=== PATIENT | female | born 1960 | race Caucasian/White ===

== ENCOUNTER → 2022-03-20 08:12 | Outpatient (CLI) | payer OTHER, SELFPAY ==
--- NOTE | ~2022-03-20 | CT_ITS ---
EXAMINATION: CT brain wo con DATE: 03/20/2022 08:33 INDICATION: Dementia TECHNIQUE: Computed tomography (CT) of the head was performed without intravenous contrast. The mA wa s adjusted according to patient size. Iterative reconstruction technique was employed. Exam dose: 52 4.62 mGy-cm total exam DLP. COMPARISON: None FINDINGS: No intracranial mass lesion or hemorrhage or cerebrovascular accident is detected. No midli ne shift or mass effect effect. Moderate cerebral volume loss. There is intracranial cerebral atherosclerosis. There is nonspecific diminished attenuation of the ce rebral white matter, likely due to chronic small vessel ischemic change. Minimal left basal ganglia c alcification. No subdural or epidural hematoma. Mastoid air cells and included paranasal sinuses are normally developed and aerated. No fracture or bone destruction of the cranial vault. IMPRESSION: Cerebral atherosclerosis and chronic small vessel ischemic changes of cerebral white mat ter No acute intracranial finding Reviewed, dictated and finalized at [facility]. Reviewed, dictated and finalized at [facility]. IMPRESSION: Cerebral atherosclerosis and chronic small vessel ischemic changes of cerebral white matter No acute intracranial finding
== END ==
PROVIDERS: PCP Physician Assistant Medical; Visit Provider Physician Assistant Medical
DX: F03.90 Unspecified dementia, unspecified severity, without behavioral disturbance, psychotic disturbance, mood disturbance, and anxiety (principal); I67.2 Cerebral atherosclerosis
CPT/HCPCS: 70450

== ENCOUNTER 2022-04-06 13:49 | Observation (INO) | payer OTHER, SELFPAY ==
[2022-04-06] VITALS (8 sets, daily range): BP systolic 147–181; BP diastolic 70–99; PULSE 61–97; RESP 15–20; TEMP 36.4–36.6; O2SAT 98–99
--- NOTE | ~2022-04-06 | CT_ITS ---
EXAMINATION: CT brain wo con DATE: 04/06/2022 16:10 INDICATION: altered mental status . TECHNIQUE: Computed tomography (CT) of the head was performed without intravenous contrast. The mA wa s adjusted according to patient size. Iterative reconstruction technique was employed. The dose-lengt h product was 605.33 mGy-cm. COMPARISON: 03/20/2022 FINDINGS: No acute intracranial hemorrhage or extra-axial fluid collection. No hydrocephalus, mass, or herniation. No acute ischemic infarct. Unremarkable dural venous sinus attenuation. No acute osseous abnormality. The aerated spaces are clear. Mild atrophy and chronic white matter change. Atherosclerotic intracranial calcifications. Bilateral lens replacements. Left basal ganglia calcification. IMPRESSION: No acute intracranial process. Reviewed, dictated and finalized at [facility].
--- NOTE | ~2022-04-06 | XR_ITS ---
EXAMINATION: XR chest 1V DATE: 04/06/2022 16:18 INDICATION: Altered mental status TECHNIQUE: frontal and lateral views of the chest were obtained. COMPARISON: None FINDINGS: The lungs are clear with no focal airspace opacities, pulmonary edema, pleural effusion or pneumothor ax. The cardiomediastinal silhouette is normal. Visualized bones and soft tissues are unremarkable. IMPRESSION: 1. No acute cardiopulmonary disease. Reviewed, dictated and finalized at [facility].
--- NOTE | ~2022-04-06 | MR_ITS ---
EXAMINATION: MR brain/brain stem wo/w con DATE: 04/08/2022 07:20 INDICATION: Confusion. TECHNIQUE: Magnetic resonance imaging (MRI) of the brain and brainstem was performed without and with 13 mL MultiHance intravenous contrast. COMPARISON: Head CT 04/06/2022 FINDINGS: There is no intracranial hemorrhage, acute infarction, or abnormal intracranial mass lesion . There are scattered areas of nonspecific increased T2-weighted signal intensity in the cerebral whi te matter. The ventricles are normal in size. There is mild mucosal thickening in the ethmoid sinuses . There are likely changes of ocular lens replacement surgeries. The mastoid air cells are normal. IMPRESSION: 1. Mild nonspecific cerebral white matter disease, which likely represents chronic small vessel ische zakia disease. Reviewed, dictated and finalized at location [facility]. IMPRESSION: 1. Mild nonspecific cerebral white matter disease, which likely represents technical solutions consultant silvio small vessel ischemic disease.
[2022-04-06 15:51] LABS: Basophils Percent Auto 0.5 % (0.2-1.2); Eosinophils Percent Auto 0.2 % (0-4.4); Hematocrit 41.6 % (37.0-47.0); Hemoglobin 13.4 g/dL (12.0-15.0); Lymphocytes Absolute Auto 1.23 K/mm3 (0.9-3.2); Lymphocytes Percent Auto 19.4 % (18.3-44.2); Mean Corpuscular HGB Conc 32.2 g/dl (32-36); Mean Corpuscular Hemoglobin 30.7 pg (26-34); Mean Corpuscular Volume 95.2 fl (80-100); Mean Platelet Volume 8.9 fl (7.4-10.4); Monocytes Absolute Auto 0.5 K/mm3 (0.1-0.6); Monocytes Percent Auto 7.1 % (2.6-8.5); Neutrophils Absolute Auto 4.6 K/mm3 (1.3-6.7); Neutrophils Percent Auto 72.8 % (45.5-73.1); Platelet Count Result 205 k/mm3 (150-375); Red Blood Count 4.37 M/mm3 (4.2-5.4); Red Cell Distribution Width 12.3 % (11.5-14.5); White Blood Count 6.3 K/mm3 (4.5-10.0)
--- NOTE | 2022-04-06 15:56 | ECG_ITS ---
Measurements Intervals [address] Rate: 62 P: 56 HI: 182 QRS: -29 QRSD: 86 T: 48 QT: 409 QTc: 417 Interpretive Statements SINUS RHYTHM LEFTWARD AXIS VOLTAGE CRITERIA FOR LVH Electronically Signed On 04-07-2022 11:37:11 CDT by Efren Phan M.D.
--- NOTE | 2022-04-06 15:57 | ED.AMS ---
HPI - Altered Mental Status General Chief Complaint: Altered Mental Status Stated Complaint: Panic attack Time Seen by Provider: 04/06/22 15:51 History of Present Illness HPI narrative: pt having mild dementia mms 19 and was on xanax prn not taking per family long time so primary started zoloft and had uti abx which then rechecked and resolved but memory getting worse mms again 20 but new things getting wrong vs before set up [facility] next week and then family says added aricept but last week really took turn for worse with dementia and hallucinations esau since even stopping aricept worse since wednesday and no othe rmedical c/o trauma wagoner etc took zoloft today Related Data Allergies Allergy/AdvReac Type Severity Reaction Status Date / Time NA Allergy Unknown Uncoded 06/29/15 15:02 NONE Allergy Unknown Uncoded 02/27/03 14:57 Review of Systems Constitutional: Comments: CONSTITUTIONAL: Denies fever, chills, or sweats. EYES: Denies visual changes, redness, or discharge. ENT: Denies rhinorrhea, congestion, sore throat, or otalgia. CARDIOVASCULAR: Denies chest pain, palpitations, or edema. RESPIRATORY: Denies cough or dyspnea. GASTROINTESTINAL: Denies abdominal pain, nausea, vomiting, or diarrhea. GENITOURINARY: Denies dysuria or hematuria. SKIN: Denies rash or itching. MUSCULOSKELETAL: Denies back pain, joint pain, or myalgia. NEUROLOGIC: Denies headache, numbness, or weakness. PSYCHIATRIC: Denies anxiety or depression. has hallucinations dementia PMFSH Social History Social History Substance use type: does not use Exam Const: Other: APPEARANCE: Well appearing, no pain in distress, well-nourished. Head normocephalic atraumtaic. EYES: PERRLA/EOMI, conjunctivae very clear. NOSE: Normal no drainage EARS:TMS clear Sarah Garcia, with good light reflex. THROAT: Pharynx clear, no exudate. NECK: Supple. No adenopathy, no masses. RESPIRATORY: Airway patent, repsirations nonlabored. Clear to auscultation bilaterally, no rales, rhonchi, wheezing. CARDIOVASCULAR: Regular rate and rhythm without murmurs rubs or gallops. ABDOMINAL: Soft, nontender, nondistended, no hepatosplenomegally MUSCULOSKELETAl: Moves all extremities. Strenght/ROM intact, No edema, No calf tenderness. NEURO: Alert. confused flat affect 1 word answers hallucinations and gets very aggitated easily dementia SKIN:: Warm, dry. Normal Color PSYCHIATRIC: flat then aggressive due to hallucinations Course Reevaluation(s) Reevaluation #1: talked with family given isues and meds thinking serotonin syndrome and family aggress will admit hospitalist aware at 1817 Vital Signs Vital signs: Vital Signs Temperature 36.4 C L 04/06/22 13:57 Pulse Rate 97 04/06/22 13:57 Respiratory Rate 20 04/06/22 13:57 Blood Pressure 147/80 H 04/06/22 13:57 Pulse Oximetry 98 04/06/22 13:57 Oxygen Delivery Room Air 04/06/22 13:57 Temperature 36.4 C L 04/06/22 13:57 Pulse Rate 69 04/06/22 17:38 Respiratory Rate 18 04/06/22 17:38 Blood Pressure 181/70 H 04/06/22 17:38 Pulse Oximetry 99 04/06/22 17:38 Oxygen Delivery Room Air 04/06/22 13:57 MDM - Altered Mental Status Lab Data Result diagrams: 04/06/22 15:45 04/06/22 15:45 Labs: Lab Results 04/06/22 04/06/22 04/06/22 Range/Units 15:45 15:45 15:45 WBC 6.3 (4.5-10.0) K/mm3 RBC 4.37 (4.2-5.4) M/mm3 Hgb 13.4 (12.0-15.0) g/dL Hct 41.6 (37.0-47.0) % MCV 95.2 (80-100) fl MCH 30.7 (26-34) pg MCHC 32.2 (32-36) g/dl RDW 12.3 (11.5-14.5) % Plt Count 205 (150-375) k/mm3 MPV 8.9 (7.4-10.4) fl Immature Gran % (Auto) 0.0 (0-0.5) % Neut % (Auto) 72.8 (45.5-73.1) % Lymph % (Auto) 19.4 (18.3-44.2) % [place]oshone % (Auto) 7.1 (2.6-8.5) % Eos % (Auto) 0.2 (0-4.4) % Baso % (Auto) 0.5 (0.2-1.2) % Lymph # (Auto) 1.23 (0.9-3.2) K/mm3 [place]oshone # (Auto) 0.5 (0.1-0.6) K/mm3 Eos # (Auto) 0.0
[2022-04-06 16:01] LABS: Alanine Aminotransferase 18 U/L (6-35); Alkaline Phosphatase 80 U/L (38-126); Anion Gap 11 mmol/L (8-16); Aspartate Amino Transferase 29 U/L (14-36); Bilirubin,Total 0.4 mg/dL (0.2-1.3); Blood Urea Nitrogen 21 mg/dL (7-17); Calcium 9.9 mg/dL (8.4-10.2); Carbon Dioxide 27 mmol/L (22-30); Chloride 102 mmol/L (98-107); Estimated CRCL calculation 54 ml/min; Estimated Glomerular Filt Rate > 60; Glucose 124 mg/dL (65-110); Potassium 4.1 mmol/L (3.4-5.0); Sodium 140 mmol/L (137-145)
[2022-04-06 16:02] LABS: Prothrombin Time 12.5 Seconds (11.1-14.7)
[2022-04-06 16:03] LABS: Partial Thromboplastin Time 23.9 SECONDS (22.3-36.8)
[2022-04-06 16:09] LABS: Add Urine Microscopic? YES; Appearance Urine Clear (Clear); Bilirubin Urine Negative (Negative); Blood Urine Negative (Negative); Color Urine Yellow (Yellow); Glucose Urine UA Negative (Negative); Ketones Urine Trace mg/dL (Negative); Leukocyte Esterase Ur Negative LEU/UL (Negative); Nitrate Urine Negative (Negative); Protein Urine 1+ mg/dL (Negative); Specific Grav Ur 1.025 (1.001-1.035); Urobilinogen Urine 0.2 mg/dL (<2.0); pH Urine 5.5 (5.0-9.0)
[2022-04-06 16:17] LABS: Bacteria Urine Trace /hpf; Mucus Urine Moderate /lpf; RBC Urine 0-2 /hpf (0-2); Squamous Epithelial Cell Urine Few /hpf (Few)
[2022-04-06 16:26] LABS: Amphetamine Screen Urine Negative (Negative); Barbiturate Screen Urine Negative (Negative); Benzodiazepines Screen Urine Negative (Negative); Cannabinoid Screen Urine Negative (Negative); Cocaine Screen Urine Negative (Negative); Methadone Screen Urine Negative (Negative); Opiate Screen Urine Negative (Negative); Phencyclidine Screen Urine Negative (Negative)
--- NOTE | 2022-04-06 16:27 | PC.NURSE ---
Pt at this time is not responding to verbal stimuli at this time. IV started without moving. Sternal rub with minimal response. Gag reflux postive at this time, MD notified.
--- NOTE | 2022-04-06 16:45 | PC.NURSE ---
Pt extremely anxious, Pt fighting with staff to remove shirt and be placed in gown. Respiratory attempted to draw blood gas and was unsuccessful. Pt screamed and pulled away.
[2022-04-06 16:48] LABS: Glucose Point of Care 129 mg/dl (65-105)
[2022-04-06 17:05] LABS: Ethanol < 10 mg/dL (<10)
[2022-04-06 17:13] LABS: SARS-CoV-2 RNA PCR Negative
[2022-04-06 17:22] LABS: Acetaminophen < 10 ug/mL (10-30)
--- NOTE | 2022-04-06 17:30 | PCRCNOTE ---
Pt/family refused repeated ABG stick, Dr. Herring informed and approved refusal.
[2022-04-06 17:36] LABS: Magnesium 2.1 mg/dL (1.6-2.3)
--- NOTE | 2022-04-06 17:42 | PC.NURSE ---
still unable to do EKG due to pt being anxious and hallucinating.
[2022-04-06] MEDS: diazePAM INJ (*CRX) 10 MG/2 ML SYRINGE 5 MG IM (18:37)
--- NOTE | 2022-04-06 20:26 | PC.NURSE ---
This RN tried to call report 2 times then notified ED Charge nurse
--- NOTE | 2022-04-06 20:44 | PM.IMHP ---
H&P: HPI History of Present Illness Date/Time: 04/06/22 20:44 Chief Complaint: confusion Narrative: this is a 62-year-old female patient with a history of dementia. Her short-term memory has gradually faded and the patient was started on Aricept. The patient has not been sleeping and has become delusional. The patient was taken off of her Aricept per her primary care doctor. Patient also was on Xanax for anxiety and her primary care doctor took her off of the Xanax as well. The family stated that the patient had not been taking he Xanax very frequently. The patient was then started on Zoloft approximately 3 weeks ago. The family called her primary care doctor who thought that maybe the Zoloft was causing her to be delusional and that too was discontinued. The patient was also recent treated for urinary tract infection and it was thought that that had been the cause of her confusion. The patient is aware of who she is but does not know the date. She believes this is November. She could not remember who the president is Currently. The patient was yelling and screaming in the emergency room and wanting to go home. Was demanding to go home. Her and son are at the bedside stating that the patient is getting worse. She was given Valium IV in the emergency room which seemed to help. Urine is negative and COVID is negative. CT of her head showed no acute ischemic infarction. No acute intracranial process. Chest x-ray was read as no acute cardiopulmonary disease. The patient is being admitted for inpatient status on the date of service of 04/06/2022. Review of Systems Review of Systems: All systems reviewed & are unremarkable except as noted in HPI and below Constitutional: Constitutional: Reports as per HPI and Reports no additional constitutional complaints Eyes: Eyes: Reports as per HPI and Reports no additional eye complaints ENT: Reports system reviewed and no additional complaints, except as documented and Reports Normal hearing present Cardiovascular: Cardiovascular: Reports no additional cardiovascular complaints Respiratory: Respiratory: Reports no additional respiratory complaints and Reports no additional respiratory complaints Gastrointestinal: Gastrointestinal: Reports as per HPI and Reports no additional gastrointestinal complaints Musculoskeletal: Musculoskeletal: Reports no additional musculoskeletal complaints Integumentary/Breasts: Skin/Breast: Reports system reviewed and no additional complaints, except as docu and Reports as per HPI Neurologic: Reports system reviewed and no additional complaints, except as documented, Reports as per HPI and Reports Normal hearing present Psychiatric: Psychiatric: Reports no additional psychiatric complaints and Reports as per HPI Endocrine: Endocrine: Reports no additional endocrine complaints Hematologic/Lymphatic: Hematologic/Lymphatic: Reports no additional hematologic/lymphatic complaints Allergic/Immunologic: Allergic/Immunologic: Reports no additional allergic/immunologic complaints [facility] Past Medical History Medical History (Updated 04/06/22 @ 20:48 by Olesya Pearl NP) Glaucoma Hyperlipemia, mixed Surgical History Surgical History (Updated 04/06/22 @ 22:48 by Olesya Pearl NP) H/O tubal ligation H/O: hysterectomy Family History Family History Mother Dementia Father Hyperlipidemia Social History Social History (Updated 04/06/22 @ 22:43 by Olesya Pearl NP) Social History: the patient is and lives with her . 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 She denies any tobacco abuse. she is occasionally has a beer. code status full code Smoking status: Never smoker Alcohol intake: never Substance use: never Substance use type: does not use Spiritual care concerns: No Meds Home Medications and Allergies Home Medications Med
[2022-04-07] VITALS (9 sets, daily range): BP systolic 142–168; BP diastolic 70–93; PULSE 68–130; RESP 17–18; TEMP 36–36.4; O2SAT 97–100
[2022-04-07 06:45] LABS: Basophils Percent Auto 0.4 % (0.2-1.2); Eosinophils Percent Auto 0.3 % (0-4.4); Hemoglobin 13.5 g/dL (12.0-15.0); Immature Granulocyte Absolute 0.02 K/mm3 (0.00-0.031); Immature Granulocyte Percent A 0.3 % (0-0.5); Lymphocytes Absolute Auto 1.42 K/mm3 (0.9-3.2); Lymphocytes Percent Auto 21.2 % (18.3-44.2); Mean Corpuscular HGB Conc 32.1 g/dl (32-36); Mean Corpuscular Hemoglobin 30.7 pg (26-34); Mean Corpuscular Volume 95.5 fl (80-100); Mean Platelet Volume 9.4 fl (7.4-10.4); Monocytes Absolute Auto 0.5 K/mm3 (0.1-0.6); Monocytes Percent Auto 7.6 % (2.6-8.5); Neutrophils Absolute Auto 4.7 K/mm3 (1.3-6.7); Neutrophils Percent Auto 70.2 % (45.5-73.1); Platelet Count Result 213 k/mm3 (150-375); Red Cell Distribution Width 12.2 % (11.5-14.5); White Blood Count 6.7 K/mm3 (4.5-10.0)
[2022-04-07 07:11] LABS: Alanine Aminotransferase 19 U/L (6-35); Alkaline Phosphatase 77 U/L (38-126); Anion Gap 8 mmol/L (8-16); Aspartate Amino Transferase 26 U/L (14-36); Bilirubin,Total 0.5 mg/dL (0.2-1.3); Blood Urea Nitrogen 19 mg/dL (7-17); Calcium 9.6 mg/dL (8.4-10.2); Carbon Dioxide 31 mmol/L (22-30); Chloride 102 mmol/L (98-107); Estimated CRCL calculation 54 ml/min; Estimated Glomerular Filt Rate > 60; Glucose 116 mg/dL (65-110); Potassium 3.8 mmol/L (3.4-5.0); Sodium 141 mmol/L (137-145)
[2022-04-07] MEDS: ENOXAPARIN 40 MG/0.4 ML SYRINGE SUB-Q (09:11)
[2022-04-07] MEDS: ALPRAZolam (*CRX) 0.25 MG TABLET PO ×2 (11:39→18:04)
[2022-04-07] MEDS: SODIUM CHLORIDE 0.9% IV 1,000 ML 70 ML IV CONT (12:32)
--- NOTE | 2022-04-07 17:23 | PM.IMPN ---
Progress Note: A&P Assessment and Plan (1) Altered mental status: Code(s): R41.82 - Altered mental status, unspecified Status: Acute (2) Dementia: Code(s): F03.90 - Unspecified dementia without behavioral disturbance Status: Acute (3) Hallucinations: Code(s): R44.3 - Hallucinations, unspecified Status: Acute (4) Hyperlipemia, mixed: Code(s): E78.2 - Mixed hyperlipidemia Status: Acute (5) Hypertension: Code(s): I10 - Essential (primary) hypertension Status: Acute Plan Patient has has been having increasing confusion over the past 8 months per family. Sertraline was started with benefit. Aricept was started in a few days later patient developed worsening symptoms with altered mental status associated with hallucinations and delirium. CT the brain here showed no acute findings. Chest x-ray was clear. BUN was elevated at 21 and glucose was 124. Total protein was 9. TSH was normal. Urinalysis did show 1+ protein 4 6 white cells. Urine drug screen was negative. Alcohol and acetaminophen levels were negative. COVID was negative. EKG showed voltage criteria for LVH. She is treated with Valium once emergency room with good results. Xanax available here for anxiety and she has only received 1 dose. She has remained calm. Patient does have a appointment at [facility] for further evaluation of her dementia. Will check brain MRI. Will check B12 folate. Will check SPEP. Subjective Date/time seen: 04/07/22 17:23 Interval history: 62yo female with dementia here for AMS. Patient is alert but confused and unable to provide accurate history. Patient was started on Zoloft about 3 weeks ago was doing well with this. Proximally 3-4 days prior to admission, she was started Aricept. On the evening of April 04, patient became combative and delusional. Aricept was stopped. Her last dose of Aricept was on April 04. Patient continued to be confused with hallucinations. Zoloft was stopped. Her last dose was April 06. Patient was brought to the emergency room for evaluation. Patient has been doing well since admission per family in the room. Exam Narrative: AF 97.6 146/70 76 17 98% ra Gen - NARD Chest - CTA bilaterally, nml RR CV - RRR S1/S2 Abd - Soft, NT/ND, Positive BS Ext - No pedal edema Neuro - Alert but confused. Nonfocal exam. Psych - Nml mood and affect Skin - Warm and dry Objective Data Vital Signs Vital Signs: Vital Signs - 24 hr 04/06/22 17:38 04/06/22 19:01 04/06/22 19:02 Temperature Pulse Rate 69 85 85 Respiratory Rate 18 15 19 Blood Pressure 181/70 H 169/99 H Pulse Oximetry 99 99 Oxygen Delivery 04/06/22 19:15 04/06/22 19:30 04/06/22 20:46 Temperature Pulse Rate 85 74 77 Respiratory Rate 20 20 18 Blood Pressure 163/79 H Pulse Oximetry 98 Oxygen Delivery 04/06/22 20:00 04/07/22 00:00 04/07/22 04:00 Temperature 97.8 F Pulse Rate 61 90 68 Respiratory Rate 17 Blood Pressure 179/82 H Pulse Oximetry 98 Oxygen Delivery 04/07/22 04:00 04/07/22 05:33 04/07/22 08:00 Temperature 96.8 F L 96.8 F L 97.2 F L Pulse Rate 72 72 71 Respiratory Rate 18 17 17 Blood Pressure 168/93 H 168/93 H 149/74 H Pulse Oximetry 100 100 98 Oxygen Delivery 04/07/22 12:00 04/07/22 08:00 04/07/22 14:00 Temperature 97.4 F L 97.6 F Pulse Rate 74 76 Respiratory Rate 17 17 Blood Pressure 146/72 H 146/70 H Pulse Oximetry 98 98 Oxygen Delivery Room Air Intake/Output Intake/Output: Intake & Output 04/04/22 04/05/22 04/06/22 04/07/22 23:59 23:59 23:59 23:59 Intake Total 360 Balance 360 Meds/Results Medications: Active Medications Generic Name Dose Route Start Last Admin Trade Name Freq PRN Reason Stop Dose Admin Alprazolam 0.25 mg 04/06/22 22:30 04/07/22 11:39 Alprazolam (*Crx) 0.25 Mg Tablet PO 0.25 mg TID PRN Administration Anxiety En
[2022-04-07] MEDS: traZODone HCL 25 MG TABLET PO (20:43)
[2022-04-07] MEDS: MELATONIN 5 MG TABLET PO (20:43)
[2022-04-08] VITALS: PULSE 57
[2022-04-08 04:00] VITALS: BP 138/62; PULSE 60; PULSE 62; RESP 16; TEMP 36.1; O2SAT 100
[2022-04-08 08:00] VITALS: BP 140/81; PULSE 70; PULSE 88; RESP 18; TEMP 36.8; O2SAT 99
[2022-04-08 08:59] LABS: Albumin Level 4.4 g/dL (3.5-5.1); Anion Gap 10 mmol/L (8-16); Blood Urea Nitrogen 23 mg/dL (7-17); Calcium 9.6 mg/dL (8.4-10.2); Carbon Dioxide 28 mmol/L (22-30); Chloride 102 mmol/L (98-107); Estimated CRCL calculation 48 ml/min; Estimated Glomerular Filt Rate > 60; Glucose 98 mg/dL (65-110); Magnesium 2.2 mg/dL (1.6-2.3); Phosphorus 4.7 mg/dL (2.5-4.5); Potassium 3.8 mmol/L (3.4-5.0); Sodium 140 mmol/L (137-145)
[2022-04-08 09:15] LABS: Immunoglobulin A 154 mg/dL (70-400); Immunoglobulin G 888 mg/dL (700-1600); Immunoglobulin M 35 mg/dL (40-230)
[2022-04-08] MEDS: ENOXAPARIN 40 MG/0.4 ML SYRINGE SUB-Q (09:49)
[2022-04-08 10:15] LABS: Folic Acid > 20.0 ng/mL (2.76->20)
[2022-04-08 12:00] VITALS: BP 155/80; PULSE 60; PULSE 64; RESP 16; TEMP 36.6; O2SAT 100
--- NOTE | 2022-04-08 15:59 | PM.DS ---
DS: Admitting Diagnosis Discharge Date 04/08/22 Admitting Diagnosis Altered mental status DS: Discharge Diagnosis Discharge Diagnosis (1) Altered mental status: Code(s): R41.82 - Altered mental status, unspecified Status: Acute (2) Dementia: Code(s): F03.90 - Unspecified dementia without behavioral disturbance Status: Acute (3) Hallucinations: Code(s): R44.3 - Hallucinations, unspecified Status: Acute (4) Hyperlipemia, mixed: Code(s): E78.2 - Mixed hyperlipidemia Status: Acute (5) Hypertension: Code(s): I10 - Essential (primary) hypertension Status: Acute DS: Summary Hospital Course Reason for hospitalization: 62yo female with dementia here for AMS. Please see H&P for details Hospital Course: Patient has has been having increasing confusion over the past 8 months per family.? Sertraline was started with benefit.? Aricept was started but she developed AMS with hallucinations and delirium and few days after starting Aricept.?Aricept then Zoloft were stopped prior to admission. CT the brain here showed no acute findings.? Chest x-ray was clear.? BUN was elevated at 21 and glucose was 124.? Total protein was 9.? TSH was normal.? Urinalysis did show 1+ protein and 4-6 white cells.? Urine drug screen was negative.? Alcohol and acetaminophen levels were negative.? COVID was negative.? EKG showed voltage criteria for LVH.? She was treated with Valium once in the emergency room with good results.? Xanax was available here for anxiety and she has only received 2 doses. Brain MR showing mild nonspecific cerebral white matter disease. B12 and folate levels were normal. She has remained calm.? Patient does have a appointment at [facility] for further evaluation of her dementia.? Patient still having hallucinations at times. Is comfortable with discharge with plans for follow-up as planned. Patient did well as a to be discharged home on 04/08/2022. Will provide the family with copies of the imaging as well as reports. Status at Discharge Cognitive/behavioral status at discharge: Stable Time Spent with Patient Time attestation: Total time spent providing and/or coordinating discharge services: 35 minutes Time spent: Greater than 30 minutes Exam Narrative: AF 97.8 155/80 60 16 100% ra Gen - NARD Chest - Clear anteriroly, nml RR CV - RRR S1/S2 Abd - Soft, NT/ND, Positive BS Ext - No pedal edema Psych -alert but confused. Skin - Warm and dry DS: Data Data Completed and Pending Labs on day of discharge: Labs from last 24 hours 04/08/22 04/08/22 04/08/22 06:41 06:41 06:41 Sodium Potassium Chloride Carbon Dioxide Anion Gap BUN Creatinine Estim Creat Clear Calc Estimated GFR Glucose Calcium Phosphorus Magnesium Total Protein Pending Albumin Pending Gjekq-7-Fiyjubtrr Pending Dgjih-5-Qvbggwjyz Pending Uhrt-9-Nqlmvzth Pending Wswp-4-Amnjahsb Pending Gamma Globulins Pending Abnorm Protein Band 1 Pending Abnorm Protein Band 3 Pending PEP Interpretation Pending Vitamin B12 Folate IgG 888 IgA 154 IgM 35 L RPR Pending 04/08/22 06:41 Sodium 140 Potassium 3.8 Chloride 102 Carbon Dioxide 28 Anion Gap 10 BUN 23 H Creatinine 0.90 Estim Creat Clear Calc 48 Estimated GFR > 60 Glucose 98 Calcium 9.6 Phosphorus 4.7 H Magnesium 2.2 Total Protein Albumin 4.4 Rmeuw-6-Xvfdlvauq Auctb-0-Gyjgkygxw Lgdw-8-Dasudjth Ynnr-4-Enkfgxeb Gamma Globulins Abnorm Protein Band 1 Abnorm Protein Band 3 PEP Interpretation Vitamin B12 858.0 Folate > 20.0 H IgG IgA IgM RPR Discharge Plan Discharge Attending physician on discharge: Seven Lockett Discharging Clinician: Seven Lockett Anticipated Discharge Date/Time: 04/08/22 16:07 Patient Disposition: Home, Self-Care Activity: as tolerat
[2022-04-08 16:00] VITALS: BP 127/80; PULSE 79; RESP 18; TEMP 36.8; O2SAT 99
[2022-04-08 16:23] LABS: Rapid Plasma Reagin Non-Reactive (NonReactive)
--- NOTE | 2022-04-09 09:03 | PC.NURSE ---
RPR is negative. Dr. Cathryn mclean.
[2022-04-11 17:00] LABS: Albumin 4.2 g/dL (3.8-4.8); Alpha 1 Globulin 0.3 g/dL (0.2-0.3); Alpha 2 Globulin 0.8 g/dL (0.5-0.9); Beta 1 Globulin 0.3 g/dL (0.4-0.6); Gamma Globulin 0.9 g/dL (0.8-1.7); Protein, Total 6.9 g/dL (6.1-8.1)
--- NOTE | 2022-04-14 08:19 | PC.NURSE ---
SPEP- No M-spike. Dr. Cathryn mclean.
== END 2022-04-08 16:44 | disposition home or self-care (01) ==
LOC: ANHED 18:18 → ANH3MEDSUR 04-07 05:32
PROVIDERS: Emergency Medicine; Nurse Practitioner; Admitting Provider Internal Medicine; Emergency Provider Emergency Medicine; PCP Physician Assistant Medical; Visit Provider Internal Medicine
DX: R41.82 Altered mental status, unspecified (principal); F03.90 Unspecified dementia, unspecified severity, without behavioral disturbance, psychotic disturbance, mood disturbance, and anxiety; R44.3 Hallucinations, unspecified; E78.2 Mixed hyperlipidemia; I10 Essential (primary) hypertension; H40.9 Unspecified glaucoma; Z20.822 Contact with and (suspected) exposure to COVID-19; R90.82 White matter disease, unspecified; Z79.899 Other long term (current) drug therapy
CPT/HCPCS: 36415; 36600; 70450; 70553; 71045; 80053; 80069; 80307; 81001; 82607; 82746; 82784; 82948; 83735; 84155; 84165; 84443; 85025; 85610; 85730; 86592; 93005; 96360; 96361; 96372; 99285; A9270; A9577; C9803; G0378; J1650; J3360; J7030; U0003; U0005